=== PATIENT | female | born 1985 | race Caucasian/White ===

== ENCOUNTER → 2018-04-17 13:06 | Outpatient (CLI) | payer OTHER, SELFPAY ==
--- NOTE | 2018-04-17 13:00 | RAD_ITS ---
STUDY: HYSTEROSALPINGOGRAM. REASON FOR EXAM: Female, 32 years old. Infertility. FLUOROSCOPY TIME (if supplied): (0:29) minutes/seconds. 3 images were obtained. TECHNIQUE: Hysterosalpingogram was performed by the candle wrapping machine operator. Imaging was provided. COMPARISON: None. FINDINGS: The uterus is unremarkable. Both fallopian tubes are patent with bilateral spill. RAD/Salpingogram IMPRESSION: Normal hysterosalpingogram. Electronically Signed: Garett Painting MD at 14:42 EDT Tel [phone], Service support ,
== END ==
PROVIDERS: Referring Provider Obstetrics & Gynecology; Visit Provider Obstetrics & Gynecology
DX: N97.9 Female infertility, unspecified (principal)
CPT/HCPCS: 58340; 74740; Q9967